=== PATIENT | male | born 1955 | race Asian ===

== ENCOUNTER 2020-12-07 11:01 | Emergency (ER) | payer MEDICARE, OTHER ==
[~2020-12-07] VITALS: Ht 160 cm; Wt 43.2 kg
[2020-12-07] MEDS ORDERED: LISI40TA9 PO (11:36)
[2020-12-07] MEDS ORDERED: METF-446 PO (11:36)
[2020-12-07] MEDS ORDERED: GABA-1181 PO (11:36)
[2020-12-07] MEDS ORDERED: ASPI-1444 PO (11:36)
[2020-12-07] MEDS ORDERED: AMLO10TA55 PO (11:36)
[2020-12-07] MEDS ORDERED: GLIP2.5ER PO (11:36)
[2020-12-07 11:39] VITALS: BP 169/84
[2020-12-07] MEDS ORDERED: FLUT16H NASAL (11:46)
[2020-12-07] MEDS ORDERED: LATA2.5D14 OU (11:46)
[2020-12-07] MEDS ORDERED: SIMV-43 PO (11:46)
== END 2020-12-07 17:00 | disposition home or self-care (01) ==
LOC: EMS 11:04
DX: M25.461 Effusion, right knee (principal)
CPT/HCPCS: 99283